=== PATIENT | male | born 1945 | race Hispanic/Latino ===

== ENCOUNTER → 2018-12-06 | Outpatient (CLI) | payer MEDICARE, OTHER ==
[~2018-12-06] MED LIST: IOHEXOL 350 MG/ML 100ML INFUS..BTL IV ONE; METHYLPREDNISOLONE SOD SUCC 125MG/2ML VIAL ONE
== END | disposition home or self-care (01) ==
LOC: RAH 09:31
PROVIDERS: ATTEND Internal Medicine Cardiovascular Disease
DX: I71.4 Abdominal aortic aneurysm, without rupture (principal); N28.1 Cyst of kidney, acquired; N28.89 Other specified disorders of kidney and ureter; N32.89 Other specified disorders of bladder; M47.9 Spondylosis, unspecified; Z90.49 Acquired absence of other specified parts of digestive tract
CPT/HCPCS: 74174; J2930; Q9967